=== PATIENT | male | born 1950 | race Caucasian/White ===

== ENCOUNTER 2019-09-30 22:44 | Emergency (ER) | payer MEDICARE, OTHER ==
[~2019-09-30 22:44] MED LIST: Tenecteplase 50 MG Kit ONE
--- NOTE | 2019-09-30 23:13 | EDM.PDOC ---
ED HPI GENERAL MEDICAL PROBLEM - General Chief Complaint: Syncope Stated Complaint: [facility] Time Seen by Provider: 09/30/19 22:44 - History of Present Illness INITIAL COMMENTS - FREE TEXT/NARRATIVE: 69-year-old male presents the emergency room with several near syncopal episodes. This started roughly an hour prior to arrival. He had several episodes where he nearly completely passed out. No associated injuries with these. Patient has a positive coronary artery disease history stented bypass surgery. He did not have chest pain prior to doing this. The patient has been sitting quite a bit the last couple of days as he had to drive from [place] to [place] and then later today from [place] to here he is not on anticoagulation. EMS did transfer him here in which time they obtained an EKG that was consistent with STEMI on the computer read. I did review the tracing and was somewhat concerned as there was no recent separable changes noted anywhere he had diffuse ST elevation across all leads. The patient does have a history of having a mini stroke in the past and I believe it was in the work-up for this that they found abnormal stress test which led to him having the bypass surgery the patient has a long smoking history he did quit around the time of his bypass surgery however he started smoking again and currently smokes about 1/2 pack a day. - Related Data Allergies Allergy/AdvReac Type Severity Reaction Status Date / Time No Known Allergies Allergy Verified 09/30/19 23:19 Home Meds: Home Meds Aspirin [Halfprin] 81 mg PO DAILY 09/30/19 [History] Cholecalciferol (Vitamin D3) [Vitamin D3] 1,000 unit PO DAILY 09/30/19 [History] Krill Oil 500 mg PO DAILY 09/30/19 [History] Rosuvastatin [Crestor] 20 mg PO DAILY 09/30/19 [History] carvediloL [Carvedilol] 12.5 mg PO BID 09/30/19 [History] lisinopriL [Lisinopril] 20 mg PO DAILY 09/30/19 [History] ED ROS GENERAL - Review of Systems Review Of Systems: See Below Constitutional: Reports: No Symptoms HEENT: Reports: No Symptoms Respiratory: Reports: No Symptoms Cardiovascular: Reports: Syncope (Near syncopal episodes). Denies: Chest Pain, Dyspnea on Exertion, Edema, Palpitations GI/Abdominal: Reports: No Symptoms : Reports: No Symptoms Musculoskeletal: Reports: No Symptoms Skin: Reports: No Symptoms Neurological: Reports: No Symptoms Psychiatric: Reports: No Symptoms Hematologic/Lymphatic: Reports: No Symptoms Immunologic: Reports: No Symptoms - Physical Exam Exam: See Below Exam Limited By: No Limitations General Appearance: Alert, No Apparent Distress Ears: Normal External Exam, Normal Canal, Hearing Grossly Normal, Normal TMs Nose: Normal Inspection, Normal Mucosa, No Blood Throat/Mouth: Normal Inspection, Normal Lips, Normal Teeth, Normal Gums, Normal Oropharynx, Normal Voice, No Airway Compromise Head Exam: Atraumatic, Normocephalic Neck: Normal Inspection, Supple, Non-Tender, Full Range of Motion Respiratory/Chest: No Respiratory Distress, Lungs Clear, Normal Breath Sounds, No Accessory Muscle Use, Chest Non-Tender Cardiovascular: Normal Peripheral Pulses, Regular Rate, Rhythm, No Edema, No Gallop, No JVD, No Murmur, No Rub GI/Abdominal: Normal Bowel Sounds, Soft, Non-Tender, No Organomegaly, No Distention, No Abnormal Bruit, No Mass (Male) Exam: No Hernia, Normal Inspection, Normal Prostate, Circumcised Rectal (Males) Exam: Normal Exam, Normal Rectal Tone, Prostate Normal Neuro Exam (Abbreviated): Alert, Oriented, CN II-XII Intact, Normal Cognition, Normal Gait, Normal Reflexes, No Motor/Sensory Deficits Back Exam: Normal Inspection, Full Range of Motion, NT Extremities: Normal Inspection, Normal Range of Motion, Non-Tender, No Pedal Edema, Normal Capillary Refill Psychiatric: Normal Affect, Normal Mood Skin Exam: Warm, Dry, Intact, Normal Color, No Rash EKG INTERPRETATION EKG Date: 09/30/19 Rhythm: NSR QRS: LBBB ST-T: Other (Dis concordant changes) QT: Normal EKG Interpretation Comments: Abnormal Course - Vital Signs Last Recorded V/S: Last Vital Signs Temp 35.8 C L 09/30/19 22:44 Pulse 82 09/30/19 22:44 Resp 18 09/30/19 22:44 BP 125/81 09/30/19 22:44 Pulse Ox 98 09/30/19 22:44 - Orders/Labs/Meds Orders: Active Orders 24 hr Category Date Time Status EKG Documentation Completion [RC] ASDIRECTED Care 09/30/19 23:51 Active Chest 1V Frontal [CR] Stat Exams 09/30/19 23:51 Taken CULTURE BLOOD [BC] Stat Lab 10/01/19 00:53 Ordered CULTURE BLOOD [BC] Stat Lab 10/01/19 00:54 Ordered INR,PT,PROTHROMBIN TIME [COAG] Stat Lab 09/30/19 23:42 Received PTT,PARTIAL THROMBOPLSTIN TIME [COAG] Stat Lab 09/30/19 23:42 Received EKG 12 Lead [EK] Stat Ther 09/30/19 23:51 Ordered Labs: Laboratory Tests 09/30/19 09/30/19 09/30/19 Range/Units 23:16 23:16 23:16 WBC 23.80 H (4.23-9.07) K/mm3 RBC 5.91 (4.63-6.08) M/mm3 Hgb 18.9 H (13.7-17.5) gm/dl Hct 54.4 H (40.1-51.0) % MCV 92.0 (79.0-92.2) fl MCH 32.0 (25.7-32.2) pg MCHC 34.7 (32.2-35.5) g/dl RDW Std Deviation 45.2 H (35.1-43.9) fL Plt Count 183 (163-337) K/mm3 MPV 10.3 (9.4-12.3) fl Neut % (Auto) Cancelled Lymph % (Auto) Cancelled [place] % (Auto) Cancelled Eos % (Auto) Cancelled Baso % (Auto) Cancelled Neut # (Auto) Cancelled Lymph # (Auto) Cancelled [place] # (Auto) Cancelled Eos # (Auto) Cancelled Baso # (Auto) Cancelled Neutrophils % (Manual) 49 (40-60) % Band Neutrophils % 16 H (0-10) % Lymphocytes % (Manual) 16 L (20-40) % Atypical Lymphs % 0 % Monocytes % (Manual) 17 H (2-10) % Eosinophils % (Manual) 2 (0.8-7.0) % Basophils % (Manual) 0 L (0.2-1.2) Manual Slide Review Cancelled Toxic Granulation 1+ slight Platelet Estimate Adequate Plt Morphology Comment Normal RBC Morph Comment Normal ESR (0-15) mm/hr Sodium 141 (136-145) mEq/L Potassium 4.4 (3.5-5.1) mEq/L Chloride 107 (98-107) mEq/L Carbon Dioxide 24 (21-32) mEq/L Anion Gap 14.4 (5-15) BUN 26 H (7-18) mg/dL Creatinine 2.2 H (0.7-1.3) mg/dL Est Cr Clr Drug Dosing TNP Estimated GFR (MDRD) 30 (>60) mL/min BUN/Creatinine Ratio 11.8 L (14-18) Glucose 99 (80-115) mg/dL Calcium 10.1 (8.5-10.1) mg/dL Magnesium 1.7 L (1.8-2.4) mg/dl Total Bilirubin 0.4 (0.2-1.0) mg/dL AST 16 (15-37) U/L ALT 18 (16-63) U/L Alkaline Phosphatase 81 (46-116) U/L Troponin I < 0.017 (0.00-0.056) ng/mL C-Reactive Protein 0.6 (<1.0) mg/dL NT-Pro-B Natriuret Pep 499 H (0-125) pg/mL Total Protein 8.2 (6.4-8.2) g/dl Albumin 3.8 (3.4-5.0) g/dl Globulin 4.4 gm/dL Albumin/Globulin Ratio 0.9 L (1-2) 05/26/20 Range/Units 23:42 WBC (4.23-9.07) K/mm3 RBC (4.63-6.08) M/mm3 Hgb (13.7-17.5) gm/dl Hct (40.1-51.0) % MCV (79.0-92.2) fl MCH (25.7-32.2) pg MCHC (32.2-35.5) g/dl RDW Std Deviation (35.1-43.9) fL Plt Count (163-337) K/mm3 MPV (9.4-12.3) fl Neut % (Auto) Lymph % (Auto) [place] % (Auto) Eos % (Auto) Baso % (Auto) Neut # (Auto) Lymph # (Auto) [place] # (Auto) Eos # (Auto) Baso # (Auto) Neutrophils % (Manual) (40-60) % Band Neutrophils % (0-10) % Lymphocytes % (Manual) (20-40) % Atypical Lymphs % % Monocytes % (Manual) (2-10) % Eosinophils % (Manual) (0.8-7.0) % Basophils % (Manual) (0.2-1.2) Manual Slide Review Toxic Granulation Platelet Estimate Plt Morphology Comment RBC Morph Comment ESR > 120 H (0-15) mm/hr Sodium (136-145) mEq/L Potassium (3.5-5.1) mEq/L Chloride (98-107) mEq/L Carbon Dioxide (21-32) mEq/L Anion Gap (5-15) BUN (7-18) mg/dL Creatinine (0.7-1.3) mg/dL Est Cr Clr Drug Dosing Estimated GFR (MDRD) (>60) mL/min BUN/Creatinine Ratio (14-18) Glucose (80-115) mg/dL Calcium (8.5-10.1) mg/dL Magnesium (1.8-2.4) mg/dl Total Bilirubin (0.2-1.0) mg/dL AST (15-37) U/L ALT (16-63) U/L Alkaline Phosphatase (46-116) U/L Troponin I (0.00-0.056) ng/mL C-Reactive Protein (<1.0) mg/dL NT-Pro-B Natriuret Pep (0-125) pg/mL Total Protein (6.4-8.2) g/dl Albumin (3.4-5.0) g/dl Globulin gm/dL Albumin/Globulin Ratio (1-2) - Re-Assessments/Exams Free Text/Narrative Re-Assessment/Exam: 09/30/19 23:16 EGD from the ambulance was concerning as it had a lot of baseline artifact but more noticeable as she had peak T waves in the precordial leads developing a left bundle branch block marked ST elevation I cannot exclude pericarditis on her EKG from here looks like a left bundle branch block has a left bundle branch block with dis-concordant ST changes in the precordial leads and inferior leads with peak T waves anterior septal. We are having difficulty getting labs and IV access the patient is otherwise stable at this point he has not had any chest pain. He is not on blood thinners he does not have typical complaints of a pulmonary embolism but this needs to be excluded. His near syncopal episodes can certainly be dysrhythmic in origin. Early in the patient' s care with this unusual EKG I did discuss it with Dr. Cantrell, on-call watch supervisor at [facility] in [place]. She was able to look at it and agrees that he probably has a repolarization abnormality with peak T waves but this clearly does not meet STEMI criteria 10/01/19 01:16 As were difficult to obtain but we did get him he is got an elevated white count because of this is uncertain at this point. Watch his rhythm strip it is quite irregular at times and regular at other times and I wonder if this is contributing to his near syncopal episodes. Did discuss patient's case with Dr. Aparicio hospitalist at [facility] in [place] is kind enough to accept the patient in transfer patient has a marked elevated white count at 23,000 because of this is unclear did order blood cultures but they have been unable to obtain them we will try and obtain a urine. Departure - Departure Time of Disposition: 01:18 Disposition: DC/Tfer to [facility] 02 Clinical Impression: Sinus arrhythmia, Elevated white blood cell count - Discharge Information Referrals: PCP,None [Ordering Only Provider] - Forms: ED Department Discharge Sepsis Event Note - Focused Exam Vital Signs: Vital Signs Temp Pulse Resp BP Pulse Ox 09/30/19 22:44 35.8 C L 82 18 125/81 98 Date Exam was Performed: 10/01/19 Time Exam was Performed: 00:56 - My Orders Last 24 Hours: My Active Orders 09/30/19 23:51 EKG Documentation Completion [RC] ASDIRECTED Chest 1V Frontal [CR] Stat EKG 12 Lead [EK] Stat 10/01/19 00:53 CULTURE BLOOD [BC] Stat 10/01/19 00:54 CULTURE BLOOD [BC] Stat - Assessment/Plan Last 24 Hours: My Active Orders 09/30/19 23:51 EKG Documentation Completion [RC] ASDIRECTED Chest 1V Frontal [CR] Stat EKG 12 Lead [EK] Stat 10/01/19 00:53 CULTURE BLOOD [BC] Stat 10/01/19 00:54 CULTURE BLOOD [BC] Stat
--- NOTE | 2019-10-01 | PCM.PRNOTE ---
- Free Text/Narrative Note: Ultrasound guided Difficult IV start in ED Requested by ED nurses to start an IV for IVF therapy and blood draw after reported several unsuccessful attempts. First attempt: Left antecubital 20G unsuccessful, unable to obtain blood return. Second attempt: Left basilic vein above the antecubital area - 1.88 inch IV catheter used. Free flow of venous blood, 10 mls drawn for labs easily, easy NS flush x2 , IV secured. Start: 23:30 End: 23:45 Tonny Thomas CRNA
[2019-10-01] MEDS ORDERED: Lactated Ringers 1,000 ML ONE (01:23)
[2019-10-01] MEDS ORDERED: Lactated Ringers 1,000 ML IV SCH (01:45)
--- NOTE | 2019-10-01 06:38 | CR ---
Chest: Portable view of the chest was obtained. Comparison: No prior chest x-rays available. Heart size is normal. Tortuous thoracic aorta is seen. Lungs are clear with no acute parenchymal change. Prior sternotomy is noted. Impression: 1. Nothing acute is seen on portable chest x-ray. Diagnostic code #1 This report was dictated in MDT
== END 2019-10-01 01:44 ==
LOC: JD.ED 22:44
DX: I49.9 Cardiac arrhythmia, unspecified (principal); D72.829 Elevated white blood cell count, unspecified; Z79.82 Long term (current) use of aspirin; Z79.899 Other long term (current) drug therapy
CPT/HCPCS: 36415; 71045; 80053; 83735; 83880; 84484; 85007; 85027; 85610; 85652; 85730; 86140; 93005; 99285; J7120; 85025; 93010